=== PATIENT | male | born 1945 | race Hispanic/Latino ===

== ENCOUNTER 2018-07-23 16:27 | Emergency (ER) | payer OTHER | END 2018-07-23 17:44 | disposition home or self-care (01) | LOC: EDH 16:27 | DX: S52.591A Other fractures of lower end of right radius, initial encounter for closed fracture (principal); W18.31XA Fall on same level due to stepping on an object, initial encounter; Y93.89 Activity, other specified; Y92.098 Other place in other non-institutional residence as the place of occurrence of the external cause; Y99.8 Other external cause status | CPT/HCPCS: 29125; 73110 ==

== ENCOUNTER 2022-08-20 16:36 | Emergency (ER) | payer OTHER ==
[~2022-08-20] VITALS: Ht 170.2 cm; Wt 81.6 kg
[2022-08-20] MEDS ORDERED: MORPHINE 2 MG SYG IM ONE (17:30)
[2022-08-20 18:32] VITALS: BP 126/73
== END 2022-08-20 18:33 | disposition home or self-care (01) ==
LOC: EDH 16:36
DX: S00.83XA Contusion of other part of head, initial encounter (principal); S20.212A Contusion of left front wall of thorax, initial encounter; E11.9 Type 2 diabetes mellitus without complications; E78.00 Pure hypercholesterolemia, unspecified; I10 Essential (primary) hypertension; Z88.8 Allergy status to other drugs, medicaments and biological substances; W01.0XXA Fall on same level from slipping, tripping and stumbling without subsequent striking against object, initial encounter; Y93.89 Activity, other specified; Y92.89 Other specified places as the place of occurrence of the external cause; Y99.8 Other external cause status
CPT/HCPCS: 70450; 70486; 71101; 96372

== ENCOUNTER → 2023-05-11 | Outpatient (CLI) | payer OTHER | END | disposition home or self-care (01) | LOC: RAH 13:11 | PROVIDERS: ATTEND Internal Medicine | DX: R10.31 Right lower quadrant pain (principal); R10.2 Pelvic and perineal pain; K57.30 Diverticulosis of large intestine without perforation or abscess without bleeding; M47.817 Spondylosis without myelopathy or radiculopathy, lumbosacral region | CPT/HCPCS: 74176 ==

== ENCOUNTER → 2024-08-06 | Outpatient (CLI) | payer OTHER ==
--- NOTE | 2024-08-06 16:14 | HMCIMG ---
CT ABDOMEN/PELVIS W/O CONTRAST REASON: RUQ PAIN COMPARISON: None. FINDINGS: Lung bases are clear. There are no focal liver lesions. There are perinephric stranding, nonspecific, often a reflection of. There is no mass, stone or hydronephrosis. Cortical thickness appears preserved.. Spleen and pancreas appear unremarkable. The gallbladder appears normal as well. There is mild sigmoid diverticulosis without evidence of diverticulitis. Bowel loops appear otherwise unremarkable. This includes normal appearance of the appendix There is no evidence of free fluid or intraperitoneal air. There are no focal fluid collections. There is calcification of the aorta without evidence of aneurysm or stenosis. Aorta and retroperitoneum appear otherwise normal as do pelvic soft tissue structures. The anterior abdominal wall is intact. Osseous structures appear unremarkable. IMPRESSION: 1. No acute finding in the abdomen or pelvis. 2. Mild sigmoid diverticulosis without evidence of diverticulitis. 3. Mild bilateral perinephric stranding which can be a reflection of early chronic renal disease. 4. Otherwise unremarkable exam including normal appearance of the appendix. CT was performed with one or more following dose reduction techniques: automated exposure control, adjustment of the mA and kv according to patient's size, or use of a iterative reconstruction technique.
== END | disposition home or self-care (01) ==
LOC: RAH 08-03 14:00
PROVIDERS: ATTEND Internal Medicine
DX: K57.30 Diverticulosis of large intestine without perforation or abscess without bleeding (principal); R10.11 Right upper quadrant pain; I70.0 Atherosclerosis of aorta
CPT/HCPCS: 74176